=== PATIENT | male | born 1960 | race Caucasian/White ===

== ENCOUNTER 2024-10-12 19:46 | Observation (INO) | payer MEDICARE, SELFPAY ==
[2024-10-12] VITALS (8 sets, daily range): BP systolic 130–144; BP diastolic 74–89; PULSE 88–101; RESP 16–19; TEMP 36.4–36.7; O2SAT 99–100
--- NOTE | ~2024-10-12 | XR_ITS ---
XR chest 1V portable Ordering provider: Ulises Estrella MD History: 64 years Male with . SYNCOPAL EPISODE . Comparison: None. FINDINGS: MEDIASTINUM: The cardiac silhouette is not enlarged. LUNGS: No effusions or pneumothorax. Opacification in the left lung base suggestive of atelectasis ve rsus pneumonia. OTHER: No free air under the diaphragm. Degenerative changes of the spine. IMPRESSION: Left basilar atelectasis versus pneumonia. Reviewed, dictated and finalized at location A. S AND MARKETING ADMINISTRATOR
--- NOTE | ~2024-10-12 | MR_ITS ---
EXAMINATION: MR brain/brain stem wo/w con DATE: 10/13/2024 10:48 INDICATION: Syncope. TECHNIQUE: Magnetic resonance imaging (MRI) of the brain and brainstem was performed without and with 20 mL MultiHance intravenous contrast. COMPARISON: Head CT 10/12/2024 FINDINGS: There are scattered areas of nonspecific increased T2-weighted signal intensity in the cere bral white matter, which is within normal limits for the patient's age. There is no intracranial hemo rrhage, acute infarction, or abnormal intracranial mass lesion. The ventricles are normal in size. Th ere is mild mucosal thickening in the ethmoid sinuses. The orbits are normal. The mastoid air cells a re normal. IMPRESSION: 1. Normal aging brain. Reviewed, dictated and finalized at location A. SHING MANAGER IMPRESSION: 1. Normal aging brain.
--- NOTE | ~2024-10-12 | CT_ITS ---
EXAMINATION: CTA brain carotid DATE: 10/12/2024 21:35 INDICATION: Syncope. Facial weakness. TECHNIQUE: Computed tomographic angiography (CTA) of the head was performed without and with 100 mL O mnipaque-350 intravenous contrast. CTA of the neck was performed with intravenous contrast. Automated exposure control and iterative reconstruction technique were employed. The dose-length product was 2 080.32 mGy-cm. Maximum intensity projection and volume rendered 3D-reconstructions were created by guillermo simmons technologist on a separate workstation. COMPARISON: None. FINDINGS: HEAD CTA: There is no intracranial hemorrhage, acute infarction, or abnormal intracranial mass lesion . There are scattered areas of low attenuation in the cerebral white matter, which is within normal l imits for the patient's age. The ventricles are normal in size. There is mild mucosal thickening in t he paranasal sinuses. The orbits are normal. The mastoid air cells are normal. Left vertebral artery is dominant. There is no significant stenosis of basilar artery or the posterior cerebral arteries. T he posterior communicating arteries are normal. There is no significant stenosis of the intracranial internal carotid arteries or anterior or middle cerebral arteries. Anterior communicating artery is n ormal. There is no aneurysm. NECK CTA: There are no pathologically enlarged lymph nodes. A calcified left lung nodule and calcifie d left hilar lymph nodes are consistent with old granulomatous disease. There is no significant steno sis of the vertebral arteries. There is mild plaque in the proximal internal carotid arteries. There is 0% stenosis of the proximal right internal carotid artery relative to normal distal artery lumen d iameter (NASCET criteria). There is 0% stenosis of the proximal left internal carotid artery relative to normal distal artery lumen diameter. There is moderate cervical spondylosis. IMPRESSION: 1. Normal aging brain. No aneurysm or significant intracranial arterial stenosis. 2. 0% stenosis of the proximal internal carotid arteries relative to normal distal artery lumen diame ters (NASCET criteria). Reviewed, dictated and finalized at location A. ER TURNER IMPRESSION: 1. Normal aging brain. No aneurysm or significant intracranial arterial stenosi s. 2. 0% stenosis of the proximal internal carotid arteries relative to normal dis felipe artery lumen diameters (NASCET criteria).
--- NOTE | 2024-10-12 19:56 | ECG_ITS ---
Test Date: 2024-10-12 19:58:59 Measurements Intervals [place] Rate: 88 P: 50 NE: 181 QRS: -7 QRSD: 174 T: 0 QT: 395 QTc: 480 Interpretive Statements SINUS RHYTHM RIGHT BUNDLE BRANCH BLOCK [120+ ms QRS DURATION, UPRIGHT V1, 40+ ms S IN I/aVL/V4/V5/V6] No previous ECG available for comparison Electronically Signed On 10-13-2024 09:51:13 DISTILLATION OPERATOR HELPER by Yeison Thornton M.D.
[2024-10-12 20:25] LABS: Basophils Absolute Auto 0.1 K/mm3 (0.0-0.1); Basophils Percent Auto 0.9 % (0.2-1.2); Eosinophils Absolute Auto 0.1 K/mm3 (0-0.3); Eosinophils Percent Auto 1.8 % (0-4.4); Hematocrit 43.8 % (42.0-52.0); Hemoglobin 14.9 g/dL (14.0-18.0); Immature Granulocyte Absolute 0.01 K/mm3 (0.00-0.031); Immature Granulocyte Percent A 0.2 % (0-0.5); Lymphocytes Absolute Auto 2.32 K/mm3 (0.9-3.2); Lymphocytes Percent Auto 35.3 % (18.3-44.2); Mean Corpuscular Hemoglobin 29.7 pg (26-34); Mean Corpuscular Volume 87.3 fl (80-100); Mean Platelet Volume 9.7 fl (7.4-10.4); Monocytes Absolute Auto 0.5 K/mm3 (0.1-0.6); Monocytes Percent Auto 7.4 % (2.6-8.5); Neutrophils Absolute Auto 3.6 K/mm3 (1.3-6.7); Neutrophils Percent Auto 54.4 % (45.5-73.1); Platelet Count Result 250 k/mm3 (150-375); Red Blood Count 5.02 M/mm3 (4.6-6.20); Red Cell Distribution Width 13.2 % (11.5-14.5); White Blood Count 6.6 K/mm3 (4.5-10.0)
[2024-10-12 20:36] LABS: Alanine Aminotransferase 21 U/L (6-50); Albumin Level 4.7 g/dL (3.5-5.1); Alkaline Phosphatase 86 U/L (38-126); Anion Gap 8 mmol/L (4-12); Aspartate Amino Transferase 26 U/L (17-59); Bilirubin,Total 0.7 mg/dL (0.2-1.3); Blood Urea Nitrogen 13 mg/dL (9-20); Calcium 9.6 mg/dL (8.4-10.2); Carbon Dioxide 24 mmol/L (22-30); Chloride 102 mmol/L (98-107); Estimated CRCL calculation 75 ml/min; Estimated Glomerular Filt Rate > 60; Glucose 230 mg/dL (65-110); Sodium 134 mmol/L (137-145)
[2024-10-12 21:00] LABS: Magnesium 1.6 mg/dL (1.6-2.3)
[2024-10-12 21:03] LABS: Partial Thromboplastin Time 23.8 Seconds (22.3-36.8)
[2024-10-12 21:13] LABS: Troponin I < 0.012 ng/mL (0.000-0.034)
[2024-10-12 21:18] LABS: Lactic Acid Reflex 2.9 mmol/L (0.7-2.0)
[2024-10-12 22:14] LABS: Add Urine Microscopic? NO; Appearance Urine Clear (Clear); Bilirubin Urine Negative (Negative); Blood Urine Negative (Negative); Color Urine Yellow (Yellow); Glucose Urine UA 3+ mg/dL (Negative); Ketones Urine Negative (Negative); Leukocyte Esterase Ur Negative LEU/UL (Negative); Nitrate Urine Negative (Negative); Protein Urine Negative (Negative); Specific Grav Ur > 1.045 (1.001-1.035); Urobilinogen Urine 0.2 mg/dL (<2.0); pH Urine 5.5 (5.0-9.0)
--- NOTE | 2024-10-12 22:35 | ED_ITS ---
HPI - General Adult General Chief complaint: Syncope Stated complaint: SYNCOPAL EPISODE Time Seen by Provider: 10/12/24 20:03 History of Present Illness HPI narrative: Patient 64-year-old gentleman who presents emergency department with chief complaint of syncopal episode. Patient reports that he has had some episodes of syncope before in the past and had an evaluation reviews told that he may have had a small stroke patient states that he was at the middle school started to feel lightheaded felt as though his vision started closing in on him and then briefly passed out the family reported that whenever he would passed out he was very slow to talk afterwards and they noticed that he may have had a slight facial droop. The patient reports that he feels though he is back to normal now does feel as though he is somewhat tired. Related Data Allergies Allergy/AdvReac Type Severity Reaction Status Date / Time No Known Allergies Allergy Verified 10/12/24 19:58 Review of Systems Review of Systems: A 10 system review of systems was completed on the patient and is negative except for what is stated in the HPI. Nursing and ancillary documentation was reviewed. Exam Narrative: GENERAL: Well-appearing, well-nourished, and in no acute distress. HEAD: Normocephalic, atraumatic. EYES: PERRLA and EOMI. ENT: Nares clear, no rhinorrhea or epistaxis. Mucous membranes moist. NECK: Supple. CHEST: Clear to auscultation. No respiratory distress. HEART: Regular rate and rhythm. No murmur heard. Normal peripheral pulses. ABDOMEN: Soft, nontender, nondistended, normal active bowel sounds. EXTREMITIES: Normal range of motion. No edema. SKIN: Warm, dry, no rash. NEURO: No focal deficits. Alert and oriented x3. PSYCH: Normal mood and affect. Course Vital Signs Vital signs: Vital Signs Temperature 36.4 C 10/12/24 20:02 Pulse Rate 88 10/12/24 20:02 Respiratory Rate 17 10/12/24 20:02 Blood Pressure 131/81 10/12/24 20:02 Pulse Oximetry 100 10/12/24 20:02 Temperature 36.4 C 10/12/24 22:44 Pulse Rate 90 10/12/24 22:44 Respiratory Rate 19 10/12/24 22:44 Blood Pressure 144/80 H 10/12/24 22:44 Pulse Oximetry 99 10/12/24 22:44 Oxygen Delivery Room Air 10/12/24 20:05 Medical Decision Making MDM Narrative Medical decision making narrative: Differential diagnosis includes dysrhythmia, electrolyte abnormality, dehydr ation, vasovagal syncope, dysrhythmia, ACS, CVA CT angiography of head and neck showed no acute abnormality. Laboratory studies were essentially unremarkable EKG showed no acute ischemic changes or dysrhythmia The case was discussed with the hospitalist the patient will be observed overnight Vital Signs Vital Signs: Vital Signs Temperature 36.4 C 10/12/24 20:02 Pulse Rate 88 10/12/24 20:02 Respiratory Rate 17 10/12/24 20:02 Blood Pressure 131/81 10/12/24 20:02 Pulse Oximetry 100 10/12/24 20:02 Temperature 36.4 C 10/12/24 22:44 Pulse Rate 90 10/12/24 22:44 Respiratory Rate 19 10/12/24 22:44 Blood Pressure 144/80 H 10/12/24 22:44 Pulse Oximetry 99 10/12/24 22:44 Oxygen Delivery Room Air 10/12/24 20:05 Lab Data 10/12/24 20:19 10/12/24 20:19 Labs: Lab Results 10/12/24 10/12/24 10/12/24 Range/Units 20:19 20:54 22:00 WBC 6.6 (4.5-10.0) K/mm3 RBC 5.02 (4.6-6.20) M/mm3 Hgb 14.9 (14.0-18.0) g/dL Hct 43.8 (42.0-52.0) % MCV 87.3 (80-100) fl MCH 29.7 (26-34) pg MCHC 34.0 (32-36) g/dl RDW 13.2 (11.5-14.5) % Plt Count 250 (150-375) k/mm3 MPV 9.7 (7.4-10.4) fl Immature Gran % (Auto) 0.2 (0-0.5) % Neut % (Auto) 54.4 (45.5-73.1) % Lymph % (Auto) 35.3 (18.3-44.2) % [place] % (Auto) 7.4 (2.6-8.5) % Eos % (Auto) 1.8 (0-4.4) % Baso % (Auto) 0.9 (0.2-1.2) % Lymph # (Auto) 2.32 (0.9-3.2) K/mm3 [place] # (Auto) 0.5 (0.1-0.6) K/mm3 Eos # (Auto) 0.1 (0-0.3) K/mm3 Baso # (Auto) 0.1 (0.0-0.1) K/mm3 Abs Immat Gran (auto) 0.01 (0.00-0.031) K/mm3 Absolute Neuts (auto) 3.6 (1.3-6.7) K/mm3 Absolute Nucleated RBC 0.000 (0.0-0.012) K/mm3 Nucleated RBC % 0.0 (0.0-0.2) % PT 14.0 (11.1-14.7) Seconds INR 1.0 APTT 23.8 (22.3-36.8) Seconds Sodium 134 L (137-145) mmol/L Potassium 4.0 (3.4-5.0) mmol/L Chloride 102 (98-107) mmol/L Carbon Dioxide 24 (22-30) mmol/L Anion Gap 8 (4-12) mmol/L BUN 13 (9-20) mg/dL Creatinine 1.10 (0.7-1.3) mg/dL Estim Creat Clear Calc 75 ml/min Estimated GFR > 60 (59 - ) Glucose 230 H (65-110) mg/dL Lactic Acid 2.9 H (0.7-2.0) mmol/L Calcium 9.6 (8.4-10.2) mg/dL Magnesium 1.6 (1.6-2.3) mg/dL Total Bilirubin 0.7 (0.2-1.3) mg/dL AST 26 (17-59) U/L ALT 21 (6-50) U/L Alkaline Phosphatase 86 (38-126) U/L Troponin I < 0.012 (0.000-0.034) ng/mL Total Protein 8.0 (6.3-8.2) g/dL Albumin 4.7 (3.5-5.1) g/dL Urine Color Yellow (Yellow) Urine Appearance Clear (Clear) Urine pH 5.5 (5.0-9.0) Ur Specific [place] > 1.045 H (1.001-1.035) Urine Protein Negative (Negative) mg/dL Urine Glucose (UA) 3+ H (Negative) mg/dL Urine Ketones Negative (Negative) mg/dL Ur Blood (Man) Negative (Negative) Urine Nitrate Negative (Negative) Urine Bilirubin Negative (Negative) Urine Urobilinogen 0.2 (<2.0) mg/dL Leukocyte Esterase Rfl Negative (Negative) SHERIF/UL Discharge Plan Discharge Clinical Impression: Syncope Patient Disposition: Still a Patient Condition: Stable Follow-up/Referrals: UNKNOWN,DOCTOR [Primary Care Provider] - Time of Disposition: 22:57 Quality Stroke Scale Stroke Scale 1: Stroke scale date:: 10/12/24 Stroke scale time:: 20:19 1a Level of consciousness: alert-0 1b Level of consciousness questions: answers both correctly-0 1c Level of consciousness commands: obeys both correctly-0 2 Best gaze: normal-0 3 Visual: no visual loss-0 4 Facial palsy: normal-0 5a Motor: left arm: no drift-0 5b Motor: right arm: no drift-0 6a Motor: left leg: no drift-0 6b Motor: right leg: no drift-0 7 Limb ataxia: absent-0 8 Sensory: normal-0 9 Best language: no aphasia-0 10 Dysarthria: normal-0 11 Extinction and inattention: no abnormality-0 Level:: 0
[2024-10-12] MEDS: SODIUM CHLORIDE 0.9% IV 1,000 ML 999 ML IV CONT (23:01)
[2024-10-13] VITALS (8 sets, daily range): BP systolic 113–154; BP diastolic 71–73; PULSE 76–84; RESP 16–20; TEMP 36.6–36.9; O2SAT 97–99; BMI 33.2; BMI 33.5
--- NOTE | 2024-10-13 | ECHO_ITS ---
Patient Info Name: Jefry Ornelas Age: 64 years : 1960 Gender: Male Ht: 72 in Wt: 239 lbs BSA: 2.38 m2 HR: 80 bpm BP: 154 / 41 mmHg Technical Quality: Good Exam Date: 10/13/2024 9:27 AM Exam Location: Echo Lab Patient Status: Inpatient Admit Date: 10/12/2024 Staff Ordering Physician: Bar Leo APRN Cut Off Saw Operator Pipe Blanks: Salma Masterson RDCS Attending Provider: Ulises Rankin MD Referring Physician: Ahmet AUGUSTINE; Exam Type: CA echo doppler w bubble study Study Info Indications - stroke like symptoms Complete two-dimensional, color flow and Doppler transthoracic echocardiogram is performed with agitated saline. Summary 1. The atrial septum is not well visualized. There were limited views of agitated saline study in short loops however in does limited views and short loops there did not appear to be any right to left shunts. 2. The left ventricle is normal in size and systolic function. The left ventricular ejection fraction is visually estimated to be 60-65%. 3. The right ventricle is mildly dilated with preserved systolic function. Left Ventricle The left ventricle is normal in size and systolic function. The left ventricular ejection fraction is visually estimated to be 60-65%. Right Ventricle The right ventricle is mildly dilated with preserved systolic function. Left Atria The left atrium is normal in size. Right Atria The right atrium is mildly dilated. Atrial Septum The atrial septum is not well visualized. There were limited views of agitated saline study in short loops however in does limited views and short loops there did not appear to be any right to left shunts. Aortic Valve The aortic valve is trileaflet and opens well. There is no aortic regurgitation. Pulmonic Valve The pulmonic valve is not well visualized. There is trace pulmonic valve regurgitation. Mitral Valve The mitral valve is normal. There is no mitral regurgitation. Tricuspid Valve The tricuspid valve is grossly normal. There is trace tricuspid valve regurgitation. Pericardium/Pleural There was no pericardial effusion seen in available views. Inferior Vena Cava Inferior vena cava is not well visualized. Aorta The aortic root at the level of the sinus of Valsalva when indexed to BSA is normal in diameter measuring 1.5cm/m2. Left Ventricular Outflow Tract Name Value Normal LVOT 2D LVOT Diameter 2.4 cm LVOT Doppler LVOT Peak Gradient 5 mmHg LVOT Mean Gradient 2 mmHg LVOT VTI 22 cm LVOT VTI/AV VTI Ratio 1.0 LVOT Stroke Volume 101 ml LVOT CO 19.8 l/min LVOT CI 8.3 l/min/m2 Pulmonic Valve Name Value Normal PV Doppler PV Peak Gradient 8 mmHg Mitral Valve Name Value Normal MV Doppler MV Decel [place] 243 cm/s2 MV PHT 78 ms MV Area (PHT) 2.8 cm2 4.0-5.0 MV Diastolic Function MV E Peak Velocity 65 cm/s MV A Peak Velocity 100 cm/s MV E/A 0.7 MV Decel Time 268 ms MV Annular TDI MV E/e' (Septal) 12.2 <=8.0 MV E/e' (Lateral) 9.1 <=8.0 MV E/e' (Average) 10.7 Tricuspid Valve Name Value Normal TV Regurgitation Doppler TR Peak Velocity 234 cm/s TR Peak Gradient 22 mmHg Aorta Name Value Normal Ascending Aorta Ao Root Diameter (2D) 3.5 cm Ao Root Diam Index (2D) 1.5 cm/m2 Aortic Valve Name Value Normal AV Doppler AV Peak Velocity 120 cm/s AV Peak Gradient 6 mmHg AV Mean Gradient 3 mmHg AV VTI 22 cm AV Area (Cont Eq VTI) 4.6 cm2 >=3.0 AV Area (Cont Eq Rajendra) 4.1 cm2 AV Regurgitation 2D LVOT Area 4.7 cm2 Ventricles Name Value Normal LV Dimensions 2D/MM IVS Diastolic Thickness (2D) 0.8 cm 0.6-1.0 LVID Diastole (2D) 4.7 cm 4.2-5.8 LVIW Diastolic Thickness (2D) 0.9 cm 0.6-1.0 LVID Systole (2D) 3.1 cm 2.5-4.0 LVOT Diameter 2.4 cm LV Mass (2D Cubed) 131.23 g 88.00-224.00 LV Mass Index (2D Cubed) 55 g/m2 49-115 Relative Wall Thickness (2D) 0.37 LV Fractional Shortening/Ejection Fraction 2D/MM LV Fractional Shortening (2D) 34 % 25-43 LV EF (2D Teicholz) 63 % 52-72 LV Diastolic Volume (4C MOD) 126 ml LV EF (4C MOD) 50 % LV Diastolic Volume (2C MOD) 101 ml LV EF (2C MOD) 59 % LV Diastolic Volume (BP MOD) 123 ml 62-150 LV Diastolic Volume Index (BP MOD) 52 ml/m2 34-74 LV Systolic Volume (BP MOD) 53 ml 21-61 LV Systolic Volume Index (BP MOD) 22 ml/m2 11-31 LV EF (BP MOD) 57 % 52-72 LV Diastolic Length (4C) 8.6 cm LV Systolic Length (4C) 7.2 cm LV Stroke Volume (4C MOD) 63 ml Atria Name Value Normal LA Dimensions LA Dimension (2D) 4.1 cm 3.0-4.1 LA Dimen Index (2D) 1.7 cm/m2 LA Volume (4C A-L) 72 ml RA Dimensions RA Area (4C) 19.7 cm2 <=18.0 Report Signatures
[2024-10-13 00:01] LABS: Reflex Lactic Acid Yes or No Add Lactic
--- NOTE | 2024-10-13 00:47 | ADMGEN ---
This patient, Jefry Ornelas, was admitted to Medical Room 349-01. Patient/family oriented to hospital policies and general routines including ID bracelet, bed and alarms, visiting hours, pain management, procedures, bathroom and other care routines, personal items, smoking policy, room service/diet, and visiting hours. Information on how to activate the Rapid Response Team has been discussed. Patient/Family are encouraged to report perceived risks to care and to ask questions if they do not understand what they are told or what they should do.
[2024-10-13 01:26] LABS: Lactic Acid 1.9 mmol/L (0.7-2.0)
[2024-10-13 01:36] LABS: Hemoglobin A1C 7.5 % (<5.7)
--- NOTE | 2024-10-13 03:16 | P.HP_ITS ---
H&P: HPI History of Present Illness Date/Time: 10/13/24 03:16 Chief Complaint: Syncope Narrative: This is a 64-year-old male patient with a past medical history diabetes hypertension hypothyroidism coronary artery disease and recurrent syncope presented to the emergency department today after a syncopal episode. After awakening from his syncopal episode there was concern for brief time speaking slowly and a possible facial droop. Patient is being admitted for MRI echocardiogram for stroke versus TIA workup. Patient already takes clopidogrel daily. Workup in the emergency department with normal labs except for hyperglycemia and resultant lower sodium level. Hemoglobin A1c is 7.5. Lactic acid elevated at 2.9 patient is on metformin. He did receive IV fluids and repeat lactic acid was 1.9. Chest x-ray showed left basilar atelectasis versus pneumonia. Normal white blood cell count and patient is afebrile. Head CT with CTA is unremarkable and shows 0% stenosis of the proximal internal carotid arteries bilateral. Patient was previously informed that he had narrowing of carotid artery but that is not apparent at this time. Review of Systems Review of Systems: All systems reviewed & are unremarkable except as noted in HPI and below PMFSH Past Medical History Medical History CAD (coronary artery disease) HTN (hypertension) Hypothyroidism Type 2 diabetes mellitus with hyperglycemia Social History Social History Smoking status: Never smoker Second hand tobacco smoke exposure: No Alcohol intake: never Substance use: never Do You Feel Safe in your Home?: Yes Lack of Transportation: No Lack of Food: Never True Current Housing: I Have Housing Concerned About Future Housing: No Difficulty Paying Gas/Electric Bills: No Difficulty Paying for Meds: No Currently Unemployed: No Education: Associate Degree Difficulty w/ Childcare or Family Care: No Spiritual care concerns: No Meds Home Medications and Allergies Home Medications Medication Instructions Recorded Confirmed Type atorvastatin 10 mg tablet 10 mg PO HS 10/13/24 10/13/24 History clobetasol 0.05 % topical ointment 0.05 applic topical BID 10/13/24 10/13/24 History clopidogrel 75 mg tablet 75 mg PO DAILY 10/13/24 10/13/24 History levothyroxine 75 mcg tablet 75 mcg PO DAILY 10/13/24 10/13/24 History losartan 100 mg tablet 100 mg PO DAILY 10/13/24 10/13/24 History magnesium oxide 400 mg PO DAILY 10/13/24 10/13/24 History metformin 750 mg tablet,extended 750 mg PO BID 10/13/24 10/13/24 History release 24 hr metoprolol succinate 50 mg 50 mg PO DAILY 10/13/24 10/13/24 History tablet,extended release 24 hr omeprazole 40 mg capsule,delayed 40 mg PO DAILY 10/13/24 10/13/24 History release pioglitazone 30 mg tablet 30 mg PO DAILY 10/13/24 10/13/24 History semaglutide 1 mg/dose (4 mg/3 mL) 1 mg subcut WEEKLY 10/13/24 10/13/24 History subcutaneous pen injector (Ozempic) semaglutide 1 mg/dose (4 mg/3 mL) mg subcut 10/13/24 History subcutaneous pen injector (Ozempic) Allergies Allergy/AdvReac Type Severity Reaction Status Date / Time No Known Allergies Allergy Verified 10/12/24 19:58 Vital Signs Vital Signs - 24 hr 10/12/24 20:02 10/12/24 20:03 10/12/24 20:05 Temperature 36.4 C Pulse Rate 88 90 Respiratory Rate 17 Blood Pressure 131/81 Pulse Oximetry 100 100 Oxygen Delivery Room Air 10/12/24 20:54 10/12/24 22:02 10/12/24 22:03 Temperature 36.7 C Pulse Rate 92 92 96 Respiratory Rate 16 Blood Pressure 130/84 136/74 131/89 Pulse Oximetry 100 Oxygen Delivery 10/12/24 22:04 10/12/24 22:44 10/13/24 00:25 Temperature 36.4 C 36.9 C Pulse Rate 101 H 90 80 Respiratory Rate 19 18 Blood Pressure 133/82 144/80 H 154/71 H Pulse Oximetry 99 97 Oxygen Delivery 10/13/24 00:50 10/13/24 00:40 Temperature 36.9 C Pulse Rate 80 Respiratory Rate 18 Blood Pressure 154/71 H Pulse Oximetry 97 Oxygen Delivery Room Air Exam Narrative: GENERAL: Well-appearing, well-nourished, and in no acute distress. HEAD: Normocephalic, atraumatic. EYES: PERRLA and EOMI. ENT: Nares clear, no rhinorrhea or epistaxis. Mucous membranes moist. NECK: Supple. CHEST: Clear to auscultation. No respiratory distress. HEART: Regular rate and rhythm. No murmur heard. Normal peripheral pulses. ABDOMEN: Soft, nontender, nondistended, normal active bowel sounds. EXTREMITIES: Normal range of motion. No edema. SKIN: Warm, dry, no rash. NEURO: No focal deficits. Alert and oriented x3. PSYCH: Normal mood and affect. H&P: Results Labs Labs: Short CBC 10/12/24 Range/Units 20:19 WBC 6.6 (4.5-10.0) K/mm3 Hgb 14.9 (14.0-18.0) g/dL Hct 43.8 (42.0-52.0) % Plt Count 250 (150-375) k/mm3 BMP 10/12/24 20:19 Sodium 134 L Potassium 4.0 Chloride 102 Carbon Dioxide 24 BUN 13 Creatinine 1.10 Glucose 230 H Calcium 9.6 Cardiac Enzymes 10/12/24 Range/Units 20:19 Troponin I < 0.012 (0.000-0.034) ng/mL Liver Function 10/12/24 Range/Units 20:19 Total Bilirubin 0.7 (0.2-1.3) mg/dL AST 26 (17-59) U/L ALT 21 (6-50) U/L Alkaline Phosphatase 86 (38-126) U/L Albumin 4.7 (3.5-5.1) g/dL Urine 10/12/24 Range/Units 22:00 Urine Color Yellow (Yellow) Urine Appearance Clear (Clear) Urine pH 5.5 (5.0-9.0) Ur Specific [place] > 1.045 H (1.001-1.035) Urine Protein Negative (Negative) mg/dL Urine Glucose (UA) 3+ H (Negative) mg/dL Pulse Oximetry SpO2 results: 97-99% on room air Attestation: I personally reviewed and interpreted this pulse oximetry as follows: Interpretation: No need for supplemental oxygenation at this time ECG Attestation: I personally reviewed and interpreted this ECG as follows: ECG completion date: 10/12/24 ECG completion time: 19:58 Prior ECG tracings: not available for review Interpretation: Sinus rhythm rate of 88 CT interval 181 QRS duration 174 QTC 480 QRS axis -7? right bundle-branch block no STEMI with somewhat prolonged QTC Imaging Chest x-ray: Radiologist's impression: XR chest 1V portable Ordering provider: Ulises Estrella MD History: 64 years Male with . SYNCOPAL EPISODE . Comparison: None. FINDINGS: MEDIASTINUM: The cardiac silhouette is not enlarged. LUNGS: No effusions or pneumothorax. Opacification in the left lung base suggestive of atelectasis versus pneumonia. OTHER: No free air under the diaphragm. Degenerative changes of the spine. IMPRESSION: Left basilar atelectasis versus pneumonia. Reviewed, dictated and finalized at location A. [employer] CT scan - head: Radiologist's impression: EXAMINATION: CTA brain carotid DATE: 10/12/2024 21:35 INDICATION: Syncope. Facial weakness. TECHNIQUE: Computed tomographic angiography (CTA) of the head was performed without and with 100 mL Omnipaque-350 intravenous contrast. CTA of the neck was performed with intravenous contrast. Automated exposure control and iterative reconstruction technique were employed. The dose-length product was 2080.32 mGy- cm. Maximum intensity projection and volume rendered 3D-reconstructions were created by the technologist on a separate workstation. COMPARISON: None. FINDINGS: HEAD CTA: There is no intracranial hemorrhage, acute infarction, or abnormal intracranial mass lesion. There are scattered areas of low attenuation in the cerebral white matter, which is within normal limits for the patient's age. The ventricles are normal in size. There is mild mucosal thickening in the paranasal sinuses. The orbits are normal. The mastoid air cells are normal. Left vertebral artery is dominant. There is no significant stenosis of basilar artery or the posterior cerebral arteries. The posterior communicating arteries are normal. There is no significant stenosis of the intracranial internal carotid arteries or anterior or middle cerebral arteries. Anterior communicating artery is normal. There is no aneurysm. NECK CTA: There are no pathologically enlarged lymph nodes. A calcified left lung nodule and calcified left hilar lymph nodes are consistent with old granulomatous disease. There is no significant stenosis of the vertebral arteries. There is mild plaque in the proximal internal carotid arteries. There is 0% stenosis of the proximal right internal carotid artery relative to normal distal artery lumen diameter (NASCET criteria). There is 0% stenosis of the proximal left internal carotid artery relative to normal distal artery lumen diameter. There is moderate cervical spondylosis. IMPRESSION: 1. Normal aging brain. No aneurysm or significant intracranial arterial stenosis. 2. 0% stenosis of the proximal internal carotid arteries relative to normal distal artery lumen diameters (NASCET criteria). Reviewed, dictated and finalized at location A. [employer] Assessment and Plan Assessment and plan (1) Syncope: Code(s): R55 - Syncope and collapse Status: Acute Assessment and Plan: -Recurrent syncopal episodes, this time with some delayed speech and possible facial droop that resolved spontaneously -Observation for MRI and Echo with bubble study -Lipid panel ordered -Patient on clopidogrel already, will add aspirin for now (2) Type 2 diabetes mellitus with hyperglycemia: Code(s): E11.65 - Type 2 diabetes mellitus with hyperglycemia Status: Acute Assessment and Plan: -Home medications include metformin ER and Actos -Patient reports he will be restarting Ozempic as well -ACHS fingestick glucose with SSI -Heart healthy and diabetic diet (3) HTN (hypertension): Code(s): I10 - Essential (primary) hypertension Status: Acute Assessment and Plan: -Blood pressure reviewed and stable -Continue home medications Quality VTE Prophylaxis VTE prophylaxis: pharmacologic ordered Hospitalist MIPS Advance Care Plan I have confirmed that the patient's Advanced Care Plan is present, code status is documented, or surrogate decision maker is listed in patient medical record.: Yes Medication Reconciliation I have utilized all available resources to obtain, update and review the patients current medications (includes all prescriptions, OTC, herbals, cannabis, and nutritional supplements).: Yes
[2024-10-13] MEDS: LEVOTHYROXINE SODIUM 75 MCG TABLET PO (04:55)
[2024-10-13 07:02] LABS: Basophils Percent Auto 0.5 % (0.2-1.2); Eosinophils Absolute Auto 0.1 K/mm3 (0-0.3); Eosinophils Percent Auto 1.8 % (0-4.4); Hematocrit 38.8 % (42.0-52.0); Hemoglobin 13.5 g/dL (14.0-18.0); Immature Granulocyte Absolute 0.01 K/mm3 (0.00-0.031); Immature Granulocyte Percent A 0.2 % (0-0.5); Lymphocytes Absolute Auto 2.31 K/mm3 (0.9-3.2); Lymphocytes Percent Auto 38.2 % (18.3-44.2); Mean Corpuscular HGB Conc 34.8 g/dl (32-36); Mean Corpuscular Hemoglobin 30.5 pg (26-34); Mean Corpuscular Volume 87.6 fl (80-100); Mean Platelet Volume 9.8 fl (7.4-10.4); Monocytes Absolute Auto 0.5 K/mm3 (0.1-0.6); Monocytes Percent Auto 8.6 % (2.6-8.5); Neutrophils Absolute Auto 3.1 K/mm3 (1.3-6.7); Neutrophils Percent Auto 50.7 % (45.5-73.1); Platelet Count Result 211 k/mm3 (150-375); Red Blood Count 4.43 M/mm3 (4.6-6.20); Red Cell Distribution Width 13.2 % (11.5-14.5)
[2024-10-13 07:12] LABS: Alanine Aminotransferase 19 U/L (6-50); Albumin Level 4.1 g/dL (3.5-5.1); Alkaline Phosphatase 83 U/L (38-126); Anion Gap 6 mmol/L (4-12); Aspartate Amino Transferase 21 U/L (17-59); Bilirubin,Total 0.8 mg/dL (0.2-1.3); Blood Urea Nitrogen 11 mg/dL (9-20); Carbon Dioxide 25 mmol/L (22-30); Chloride 103 mmol/L (98-107); Cholesterol 127 mg/dL (0-200); Estimated CRCL calculation 92 ml/min; Estimated Glomerular Filt Rate > 60; Glucose 180 mg/dL (65-110); HDL Direct 33 mg/dL; Magnesium 1.6 mg/dL (1.6-2.3); Potassium 3.9 mmol/L (3.4-5.0); Sodium 134 mmol/L (137-145); Triglycerides 216 mg/dL (<150)
[2024-10-13 07:22] LABS: LDL Cholesterol Direct 56 mg/dL
[2024-10-13 08:06] LABS: Glucose Point of Care 174 mg/dl (65-105)
[2024-10-13 11:43] LABS: Glucose Point of Care 166 mg/dl (65-105)
[2024-10-13] MEDS: ENOXAPARIN 40 MG/0.4 ML SYRINGE SUB-Q (11:58)
[2024-10-13] MEDS: PIOGLITAZONE HCL 30 MG TABLET PO (11:58)
[2024-10-13] MEDS: METOPROLOL SUCCINATE EXT REL 50 MG TABCR PO (11:59)
[2024-10-13] MEDS: PANTOPRAZOLE 40 MG TABLET PO (11:59)
[2024-10-13] MEDS: LOSARTAN POTASSIUM 100 MG TABLET PO (11:59)
[2024-10-13] MEDS: MAGNESIUM OXIDE 400 MG TABLET PO (11:59)
[2024-10-13] MEDS: CLOPIDOGREL BISULFATE 75 MG TABLET PO (11:59)
[2024-10-13] MEDS: ASPIRIN 81 MG ENTERIC TABLET PO (11:59)
[2024-10-13] MEDS: CLOBETASOL PROPIONATE 0.05% OINT 30 GM 0.05 APPLIC TOPICAL (12:00)
--- NOTE | 2024-10-13 12:16 | P.PNIM_ITS ---
Subjective Date/time seen: 10/13/24 12:16 Review of Systems Review of Systems: All systems reviewed & are unremarkable except as noted in HPI and below Objective Data Vital Signs Vital Signs: Vital Signs - 24 hr 10/12/24 20:02 10/12/24 20:03 10/12/24 20:05 Temperature 97.6 F Pulse Rate 88 90 Respiratory Rate 17 Blood Pressure 131/81 Pulse Oximetry 100 100 Oxygen Delivery Room Air 10/12/24 20:54 10/12/24 22:02 10/12/24 22:03 Temperature 98.1 F Pulse Rate 92 92 96 Respiratory Rate 16 Blood Pressure 130/84 136/74 131/89 Pulse Oximetry 100 Oxygen Delivery 10/12/24 22:04 10/12/24 22:44 10/13/24 00:25 Temperature 97.6 F 98.4 F Pulse Rate 101 H 90 80 Respiratory Rate 19 18 Blood Pressure 133/82 144/80 H 154/71 H Pulse Oximetry 99 97 Oxygen Delivery 10/13/24 00:50 10/13/24 06:00 10/13/24 11:59 Temperature 97.9 F Pulse Rate 76 77 Respiratory Rate 20 Blood Pressure 118/73 Pulse Oximetry 98 Oxygen Delivery Room Air 10/13/24 00:40 Temperature 98.4 F Pulse Rate 80 Respiratory Rate 18 Blood Pressure 154/71 H Pulse Oximetry 97 Oxygen Delivery Intake/Output Intake/Output: Intake & Output 10/10/24 10/11/24 10/12/24 10/13/24 23:59 23:59 23:59 23:59 Intake Total 120 Balance 120 Meds/Results Medications: Active Medications Generic Name Dose Route Start Last Admin Trade Name Freq PRN Reason Stop Dose Admin Acetaminophen 650 mg 10/12/24 22:54 Acetaminophen 325 Mg Tablet PO Q4H PRN Mild Pain (1-3) or Fever Aspirin 81 mg 10/13/24 09:00 10/13/24 11:59 Aspirin 81 Mg Enteric Tablet PO 81 mg QAM [facility] Administration Atorvastatin Calcium 10 mg 10/13/24 21:00 Atorvastatin 10 Mg Tablet PO HS [facility] Clobetasol Propionate 0.05 applic 10/13/24 09:00 10/13/24 12:00 Clobetasol Propionate 0.05% Oint 30 Gm TOPICAL 0.05 applic BID [facility] Administration Clopidogrel Bisulfate 75 mg 10/13/24 09:00 10/13/24 11:59 Clopidogrel Bisulfate 75 Mg Tablet PO 75 mg DAILY [facility] Administration Dextrose 12.5 gm 10/13/24 01:27 Dextrose 50% 25 Gm/50 Ml Syringe IV PUSH PRN PRN Hypoglycemia Protocol Enoxaparin Sodium 40 mg 10/13/24 09:00 10/13/24 11:58 Enoxaparin 40 Mg/0.4 Ml Syringe SUB-Q 40 mg DAILY [facility] Administration Glucagon 1 mg 10/13/24 01:27 Glucagon For Inj 1 Mg Vial IM PRN PRN Hypoglycemia Protocol Glucose 15 gm 10/13/24 01:27 Glucose Oral Gel 15 Gm Of Glucse In 37.5 Gm Tube PO PRN PRN Hypoglycemia Protocol Dextrose 1,000 mls @ 100 mls/hr 10/13/24 01:27 Dextrose 5% 1,000 Ml IVPB PRN PRN Hypoglycemia Protocol Insulin Aspart 4 - 8 units 10/13/24 08:00 10/13/24 12:01 Insulin Aspart (*Bkc) 100 Units/Ml SUB-Q Not Given TIDWM [facility] Protocol Levothyroxine Sodium 75 mcg 10/13/24 06:30 10/13/24 04:55 Levothyroxine Sodium 75 Mcg Tablet PO 75 mcg DAILY@0630 [facility] Administration Losartan Potassium 100 mg 10/13/24 09:00 10/13/24 11:59 Losartan Potassium 100 Mg Tablet PO 100 mg DAILY [facility] Administration Magnesium Oxide 400 mg 10/13/24 09:00 10/13/24 11:59 Magnesium Oxide 400 Mg Tablet PO 400 mg DAILY [facility] Administration Metoprolol Succinate 50 mg 10/13/24 09:00 10/13/24 11:59 Metoprolol Succinate Ext Rel 50 Mg Tabcr PO 50 mg DAILY [facility] Administration Pantoprazole Sodium 40 mg 10/13/24 09:00 10/13/24 11:59 Pantoprazole 40 Mg Tablet PO 40 mg QAM [facility] Administration Perflutren Lipid Microsphere 0 ml 10/12/24 23:48 Perflutren Lipid Microspheres 1.5 Ml Vial Diluted To 10 Ml Total Volume IV PUSH 10/15/24 23:49 ONCE PRN adequate visualization Protocol Pioglitazone HCl 30 mg 10/13/24 09:00 10/13/24 11:58 Pioglitazone Hcl 30 Mg Tablet PO 30 mg DAILY [facility] Administration Radiology Results: ITS Impressions Chest X-Ray 12/04/24 20:48 IMPRESSION: Left basilar atelectasis versus pneumonia. Head/Neck CTA 10/12/24 21:36 IMPRESSION: 1. Normal aging brain. No aneurysm or significant intracranial arterial stenosis. 2. 0% stenosis of the proximal internal carotid arteries relative to normal distal artery lumen diameters (NASCET criteria). Brain MRI 10/13/24 10:55 IMPRESSION: 1. Normal aging brain. Labs Labs: Laboratory Results - last 24 hr 10/12/24 10/12/24 10/12/24 20:19 20:54 22:00 WBC 6.6 RBC 5.02 Hgb 14.9 Hct 43.8 MCV 87.3 MCH 29.7 MCHC 34.0 RDW 13.2 Plt Count 250 MPV 9.7 Immature Gran % (Auto) 0.2 Neut % (Auto) 54.4 Lymph % (Auto) 35.3 [place] % (Auto) 7.4 Eos % (Auto) 1.8 Baso % (Auto) 0.9 Lymph # (Auto) 2.32 [place] # (Auto) 0.5 Eos # (Auto) 0.1 Baso # (Auto) 0.1 Abs Immat Gran (auto) 0.01 Absolute Neuts (auto) 3.6 Absolute Nucleated RBC 0.000 Nucleated RBC % 0.0 PT 14.0 INR 1.0 APTT 23.8 Sodium 134 L Potassium 4.0 Chloride 102 Carbon Dioxide 24 Anion Gap 8 BUN 13 Creatinine 1.10 Estim Creat Clear Calc 75 Estimated GFR > 60 Glucose 230 H POC Capillary Glucose Hemoglobin A1c Lactic Acid 2.9 H Calcium 9.6 Magnesium 1.6 Total Bilirubin 0.7 AST 26 ALT 21 Alkaline Phosphatase 86 Troponin I < 0.012 Total Protein 8.0 Albumin 4.7 Triglycerides Cholesterol LDL Cholesterol Direct HDL Direct Urine Color Yellow Urine Appearance Clear Urine pH 5.5 Ur Specific [place] > 1.045 H Urine Protein Negative Urine Glucose (UA) 3+ H Urine Ketones Negative Ur Blood (Man) Negative Urine Nitrate Negative Urine Bilirubin Negative Urine Urobilinogen 0.2 Leukocyte Esterase Rfl Negative 10/13/24 10/13/24 10/13/24 01:08 06:39 08:01 WBC 6.0 RBC 4.43 L Hgb 13.5 L Hct 38.8 L MCV 87.6 MCH 30.5 MCHC 34.8 RDW 13.2 Plt Count 211 MPV 9.8 Immature Gran % (Auto) 0.2 Neut % (Auto) 50.7 Lymph % (Auto) 38.2 [place] % (Auto) 8.6 H Eos % (Auto) 1.8 Baso % (Auto) 0.5 Lymph # (Auto) 2.31 [place] # (Auto) 0.5 Eos # (Auto) 0.1 Baso # (Auto) 0.0 Abs Immat Gran (auto) 0.01 Absolute Neuts (auto) 3.1 Absolute Nucleated RBC 0.000 Nucleated RBC % 0.0 PT INR APTT Sodium 134 L Potassium 3.9 Chloride 103 Carbon Dioxide 25 Anion Gap 6 BUN 11 Creatinine 0.90 Estim Creat Clear Calc 92 Estimated GFR > 60 Glucose 180 H POC Capillary Glucose 174 H Hemoglobin A1c 7.5 H Lactic Acid 1.9 Calcium 9.0 Magnesium 1.6 Total Bilirubin 0.8 AST 21 ALT 19 Alkaline Phosphatase 83 Troponin I Total Protein 7.0 Albumin 4.1 Triglycerides 216 H Cholesterol 127 LDL Cholesterol Direct 56 HDL Direct 33 Urine Color Urine Appearance Urine pH Ur Specific [place] Urine Protein Urine Glucose (UA) Urine Ketones Ur Blood (Man) Urine Nitrate Urine Bilirubin Urine Urobilinogen Leukocyte Esterase [facility] 10/13/24 11:41 WBC RBC Hgb Hct MCV MCH MCHC RDW Plt Count MPV Immature Gran % (Auto) Neut % (Auto) Lymph % (Auto) [place] % (Auto) Eos % (Auto) Baso % (Auto) Lymph # (Auto) [place] # (Auto) Eos # (Auto) Baso # (Auto) Abs Immat Gran (auto) Absolute Neuts (auto) Absolute Nucleated RBC Nucleated RBC % PT INR APTT Sodium Potassium Chloride Carbon Dioxide Anion Gap BUN Creatinine Estim Creat Clear Calc Estimated GFR Glucose POC Capillary Glucose 166 H Hemoglobin A1c Lactic Acid Calcium Magnesium Total Bilirubin AST ALT Alkaline Phosphatase Troponin I Total Protein Albumin Triglycerides Cholesterol LDL Cholesterol Direct HDL Direct Urine Color Urine Appearance Urine pH Ur Specific [place] Urine Protein Urine Glucose (UA) Urine Ketones Ur Blood (Man) Urine Nitrate Urine Bilirubin Urine Urobilinogen Leukocyte Esterase Rfl
--- NOTE | 2024-10-13 14:24 | P.CONCA_ITS ---
Assessment and Plan Assessment and plan (1) HTN (hypertension): Code(s): I10 - Essential (primary) hypertension Status: Acute (2) Type 2 diabetes mellitus with hyperglycemia: Code(s): E11.65 - Type 2 diabetes mellitus with hyperglycemia Status: Acute (3) Syncope: Code(s): R55 - Syncope and collapse Status: Acute Plan 64-year-old man with CAD, diabetes mellitus type 2, hypothyroidism, hypertension presents with episode of syncope Syncope -obtain transthoracic echocardiogram -if TTE relatively normal, would have patient follow up outpatient for conside ration of long-term loop monitor Hypertension -losartan 100 mg p.o. daily Hyperlipidemia -atorvastatin 10 mg every evening History of Present Illness History of Present Illness Consult date/time: 10/13/24 14:24 Requesting physician: Sultana Crowe APRN Reason For Visit: Syncope Narrative: 64-year-old man with CAD, diabetes mellitus type 2, hypothyroidism, hypertension presents with episode of syncope. He was at his family [employer] when he sat down and suddenly felt very lightheaded and his whole body felt very weak. He could not remember what happened neck is however he did wake up on the floor. These episodes have occurred 6 times over the past 2 years and each time he denied experience any chest pain or shortness of breath nor was he exerted himself. Typically is able to mow the lawn and carry out all his activities of daily living without any significant cardiopulmonary limitations. Review of Systems Cardiovascular: Cardiovascular: Reports as per HPI Respiratory: Respiratory: Reports as per HPI [facility] Past Medical History Medical History CAD (coronary artery disease) HTN (hypertension) Hypothyroidism Type 2 diabetes mellitus with hyperglycemia Social History Social History Smoking status: Never smoker Second hand tobacco smoke exposure: No Alcohol intake: never Substance use: never Do You Feel Safe in your Home?: Yes Lack of Transportation: No Lack of Food: Never True Current Housing: I Have Housing Concerned About Future Housing: No Difficulty Paying Gas/Electric Bills: No Difficulty Paying for Meds: No Currently Unemployed: No Education: Associate Degree Difficulty w/ Childcare or Family Care: No Spiritual care concerns: No Meds Home Medications and Allergies Home Medications Medication Instructions Recorded Confirmed Type atorvastatin 10 mg tablet 10 mg PO HS 10/13/24 10/13/24 History clobetasol 0.05 % topical ointment 0.05 applic topical BID 10/13/24 10/13/24 History clopidogrel 75 mg tablet 75 mg PO DAILY 10/13/24 10/13/24 History levothyroxine 75 mcg tablet 75 mcg PO DAILY 10/13/24 10/13/24 History losartan 100 mg tablet 100 mg PO DAILY 10/13/24 10/13/24 History magnesium oxide 400 mg PO DAILY 10/13/24 10/13/24 History metformin 750 mg tablet,extended 750 mg PO BID 10/13/24 10/13/24 History release 24 hr metoprolol succinate 50 mg 50 mg PO DAILY 10/13/24 10/13/24 History tablet,extended release 24 hr omeprazole 40 mg capsule,delayed 40 mg PO DAILY 10/13/24 10/13/24 History release pioglitazone 30 mg tablet 30 mg PO DAILY 10/13/24 10/13/24 History semaglutide 1 mg/dose (4 mg/3 mL) 1 mg subcut WEEKLY 10/13/24 10/13/24 History subcutaneous pen injector (Ozempic) Allergies Allergy/AdvReac Type Severity Reaction Status Date / Time No Known Allergies Allergy Verified 10/12/24 19:58 Vital Signs Vital Signs - 24 hr 10/12/24 20:02 10/12/24 20:03 10/12/24 20:05 Temperature 36.4 C Pulse Rate 88 90 Respiratory Rate 17 Blood Pressure 131/81 Pulse Oximetry 100 100 Oxygen Delivery Room Air 10/12/24 20:54 10/12/24 22:02 10/12/24 22:03 Temperature 36.7 C Pulse Rate 92 92 96 Respiratory Rate 16 Blood Pressure 130/84 136/74 131/89 Pulse Oximetry 100 Oxygen Delivery 10/12/24 22:04 10/12/24 22:44 10/13/24 00:25 Temperature 36.4 C 36.9 C Pulse Rate 101 H 90 80 Respiratory Rate 19 18 Blood Pressure 133/82 144/80 H 154/71 H Pulse Oximetry 99 97 Oxygen Delivery 10/13/24 00:50 10/13/24 06:00 10/13/24 11:53 Temperature 36.6 C Pulse Rate 76 Respiratory Rate 20 Blood Pressure 118/73 Pulse Oximetry 98 Oxygen Delivery Room Air Room Air 10/13/24 11:59 10/13/24 00:40 Temperature 36.9 C Pulse Rate 77 80 Respiratory Rate 18 Blood Pressure 154/71 H Pulse Oximetry 97 Oxygen Delivery Exam Const: General: comfortable HENMT: Mouth: Yes moist mucous membranes Eyes: EOM: EOMs intact bilaterally Neck: Neck: no JVD Resp: Effort & Inspection: normal respiratory effort Auscultation: clear to auscultation bilaterally Cardio: Rate: regular rate Rhythm: regular rhythm GI: GI Palp: Yes Soft to palpation Neuro: Speech: normal speech Extrem: General: no edema and no pedal edema Psych: Affect: normal affect Results Labs and Meds 10/13/24 06:39 10/13/24 06:39 Lab results: Cardiac Enzymes 10/12/24 10/13/24 Range/Units 20:19 06:39 AST 26 21 (17-59) U/L Troponin I < 0.012 (0.000-0.034) ng/mL Coagulation 10/12/24 Range/Units 20:19 PT 14.0 (11.1-14.7) Seconds APTT 23.8 (22.3-36.8) Seconds Lipids 10/13/24 Range/Units 06:39 Triglycerides 216 H (<150) mg/dL Cholesterol 127 (0-200) mg/dL CBC 10/12/24 10/13/24 Range/Units 20:19 06:39 WBC 6.6 6.0 (4.5-10.0) K/mm3 RBC 5.02 4.43 L (4.6-6.20) M/mm3 Hgb 14.9 13.5 L (14.0-18.0) g/dL Hct 43.8 38.8 L (42.0-52.0) % Plt Count 250 211 (150-375) k/mm3 Lymph # (Auto) 2.32 2.31 (0.9-3.2) K/mm3 [place] # (Auto) 0.5 0.5 (0.1-0.6) K/mm3 Eos # (Auto) 0.1 0.1 (0-0.3) K/mm3 Baso # (Auto) 0.1 0.0 (0.0-0.1) K/mm3 Comprehensive Metabolic Panel 10/12/24 10/13/24 Range/Units 20:19 06:39 Sodium 134 L 134 L (137-145) mmol/L Potassium 4.0 3.9 (3.4-5.0) mmol/L Chloride 102 103 (98-107) mmol/L Carbon Dioxide 24 25 (22-30) mmol/L BUN 13 11 (9-20) mg/dL Creatinine 1.10 0.90 (0.7-1.3) mg/dL Glucose 230 H 180 H (65-110) mg/dL Calcium 9.6 9.0 (8.4-10.2) mg/dL AST 26 21 (17-59) U/L ALT 21 19 (6-50) U/L Alkaline Phosphatase 86 83 (38-126) U/L Total Protein 8.0 7.0 (6.3-8.2) g/dL Albumin 4.7 4.1 (3.5-5.1) g/dL Intake and Output 10/12/24 10/13/24 10/13/24 23:59 07:59 15:59 Intake Total 120 Balance 120 Intake: Oral 120 Other: # Unmeasured Voids 2 Patient Weight 10/13/24 23:59 Weight 112.1 kg
--- NOTE | 2024-10-13 16:15 | P.DS_ITS ---
DS: Admitting Diagnosis Discharge Date 10/13/2024 Admitting Diagnosis Syncope DS: Discharge Diagnosis Discharge Diagnosis (1) Syncope: Code(s): R55 - Syncope and collapse Status: Acute (2) Type 2 diabetes mellitus with hyperglycemia: Code(s): E11.65 - Type 2 diabetes mellitus with hyperglycemia Status: Acute (3) HTN (hypertension): Code(s): I10 - Essential (primary) hypertension Status: Acute DS: Summary Hospital Course Hospital Course: * Chest x-ray showed left basilar atelectasis versus pneumonia. Normal white blood cell count, patient is afebrile, and no cough. * CTA brain and carotid: IMPRESSION: 1. Normal aging brain. No aneurysm or significant intracranial arterial stenosis. 2. 0% stenosis of the proximal internal carotid arteries relative to normal distal artery lumen diameters (NASCET criteria). * Brain MRI showed normal aging brain. * ECHO showed: Summary 1. The atrial septum is not well visualized. There were limited views of agitated saline study in short loops however in does limited views and short loops there did not appear to be any right to left shunts. 2. The left ventricle is normal in size and systolic function. The left ventricular ejection fraction is visually estimated to be 60-65%. 3. The right ventricle is mildly dilated with preserved systolic function. * EKG showed SR with right BBB rate 88 with QTc 480. * Cardiology cleared patient for discharge with follow up on 11/25/24 at 9:[address] Thornton. Status at Discharge Functional status at discharge: independent ambulation Overall status at discharge: patient is progressing back to baseline Time Spent with Patient Time attestation: Total time spent providing and/or coordinating discharge services: Time spent: Greater than 30 minutes Exam Const: General: comfortable and no acute distress Eyes: Sclera: sclerae normal Resp: Effort & Inspection: normal respiratory effort Auscultation: clear to auscultation bilaterally Cardio: Rate: regular rate Rhythm: regular rhythm GI: GI Palp: Yes Soft to palpation Auscultation: normal bowel sounds Extrem: General: normal to inspection and no pedal edema Psych: Mental Status: mental status grossly normal Affect: normal affect DS: Data Data Completed and Pending Labs on day of discharge: Labs from last 24 hours 10/13/24 10/13/24 10/13/24 11:41 08:01 06:39 WBC 6.0 RBC 4.43 L Hgb 13.5 L Hct 38.8 L MCV 87.6 MCH 30.5 MCHC 34.8 RDW 13.2 Plt Count 211 MPV 9.8 Immature Gran % (Auto) 0.2 Neut % (Auto) 50.7 Lymph % (Auto) 38.2 [place] % (Auto) 8.6 H Eos % (Auto) 1.8 Baso % (Auto) 0.5 Lymph # (Auto) 2.31 [place] # (Auto) 0.5 Eos # (Auto) 0.1 Baso # (Auto) 0.0 Abs Immat Gran (auto) 0.01 Absolute Neuts (auto) 3.1 Absolute Nucleated RBC 0.000 Nucleated RBC % 0.0 PT INR APTT Sodium 134 L Potassium 3.9 Chloride 103 Carbon Dioxide 25 Anion Gap 6 BUN 11 Creatinine 0.90 Estim Creat Clear Calc 92 Estimated GFR > 60 Glucose 180 H POC Capillary Glucose 166 H 174 H Hemoglobin A1c Lactic Acid Calcium 9.0 Magnesium 1.6 Total Bilirubin 0.8 AST 21 ALT 19 Alkaline Phosphatase 83 Troponin I Total Protein 7.0 Albumin 4.1 Triglycerides 216 H Cholesterol 127 LDL Cholesterol Direct 56 HDL Direct 33 Urine Color Urine Appearance Urine pH Ur Specific [place] Urine Protein Urine Glucose (UA) Urine Ketones Ur Blood (Man) Urine Nitrate Urine Bilirubin Urine Urobilinogen Leukocyte Esterase Rfl 10/13/24 10/12/24 10/12/24 01:08 22:00 20:54 WBC RBC Hgb Hct MCV MCH MCHC RDW Plt Count MPV Immature Gran % (Auto) Neut % (Auto) Lymph % (Auto) [place] % (Auto) Eos % (Auto) Baso % (Auto) Lymph # (Auto) [place] # (Auto) Eos # (Auto) Baso # (Auto) Abs Immat Gran (auto) Absolute Neuts (auto) Absolute Nucleated RBC Nucleated RBC % PT INR APTT Sodium Potassium Chloride Carbon Dioxide Anion Gap BUN Creatinine Estim Creat Clear Calc Estimated GFR Glucose POC Capillary Glucose Hemoglobin A1c 7.5 H Lactic Acid 1.9 2.9 H Calcium Magnesium Total Bilirubin AST ALT Alkaline Phosphatase Troponin I Total Protein Albumin Triglycerides Cholesterol LDL Cholesterol Direct HDL Direct Urine Color Yellow Urine Appearance Clear Urine pH 5.5 Ur Specific [place] > 1.045 H Urine Protein Negative Urine Glucose (UA) 3+ H Urine Ketones Negative Ur Blood (Man) Negative Urine Nitrate Negative Urine Bilirubin Negative Urine Urobilinogen 0.2 Leukocyte Esterase Rfl Negative 10/12/24 20:19 WBC 6.6 RBC 5.02 Hgb 14.9 Hct 43.8 MCV 87.3 MCH 29.7 MCHC 34.0 RDW 13.2 Plt Count 250 MPV 9.7 Immature Gran % (Auto) 0.2 Neut % (Auto) 54.4 Lymph % (Auto) 35.3 [place] % (Auto) 7.4 Eos % (Auto) 1.8 Baso % (Auto) 0.9 Lymph # (Auto) 2.32 [place] # (Auto) 0.5 Eos # (Auto) 0.1 Baso # (Auto) 0.1 Abs Immat Gran (auto) 0.01 Absolute Neuts (auto) 3.6 Absolute Nucleated RBC 0.000 Nucleated RBC % 0.0 PT 14.0 INR 1.0 APTT 23.8 Sodium 134 L Potassium 4.0 Chloride 102 Carbon Dioxide 24 Anion Gap 8 BUN 13 Creatinine 1.10 Estim Creat Clear Calc 75 Estimated GFR > 60 Glucose 230 H POC Capillary Glucose Hemoglobin A1c Lactic Acid Calcium 9.6 Magnesium 1.6 Total Bilirubin 0.7 AST 26 ALT 21 Alkaline Phosphatase 86 Troponin I < 0.012 Total Protein 8.0 Albumin 4.7 Triglycerides Cholesterol LDL Cholesterol Direct HDL Direct Urine Color Urine Appearance Urine pH Ur Specific [place] Urine Protein Urine Glucose (UA) Urine Ketones Ur Blood (Man) Urine Nitrate Urine Bilirubin Urine Urobilinogen Leukocyte Esterase Rfl Discharge Plan Discharge Attending physician on discharge: Yousif Veronica Consulting providers: Yeison Thornton Discharging Clinician: Sultana Crowe Anticipated Discharge Date/Time: 10/13/24 17:00 Patient Disposition: Home, Self-Care Activity: may shower Diet: heart healthy Discharge Instructions: * If you develop any lightheadedness, pass out, or narrowing of vision notify provider. * Keep Cardiology appointment on 11/25/24 at 9:15 AM. Patient Instructions: Antibiotic Form, Syncope (DC) Stand Alone Forms: General Discharge Information Follow-up/Referrals: Jefry Cabrera [Other] - 1 Week Yeison Thornton MD [Physician] - 11/25/24 9:15 am Discharge Medications: Continued atorvastatin 10 mg tablet 10 mg PO HS clopidogrel 75 mg tablet 75 mg PO DAILY omeprazole 40 mg capsule,delayed release(DR/EC) 40 mg PO DAILY clobetasol 0.05 % ointment 0.05 applic TOPICAL BID pioglitazone 30 mg tablet 30 mg PO DAILY metformin 750 mg tablet extended release 24 hr 750 mg PO BID Ozempic 1 mg/dose (4 mg/3 mL) pen injector 1 mg SUBCUT WEEKLY metoprolol succinate 50 mg tablet extended release 24 hr 50 mg PO DAILY levothyroxine 75 mcg tablet 75 mcg PO DAILY losartan 100 mg tablet 100 mg PO DAILY magnesium oxide 400 mg magnesium Capsule 400 mg PO DAILY Date of admission: 10/12/24 22:54 Primary Care Provider: UNKNOWN,DOCTOR Admitting Provider: Ulises Rankin Attending physician on admission: Ulises Rankin Condition: Stable Hospitalist MIPS Heart Failure (Exclusion) Patient has history of Heart Transplant or Left Ventricular Assistive Device?: No IF YES, STOP HERE Heart Failure (Qualifier) Patient has current or prior documentation of LVEF less than or equal to 40%, or mod/servere depressed LVSF?: No IF NO, STOP HERE
[2024-10-13 17:07] LABS: Glucose Point of Care 174 mg/dl (65-105)
== END 2024-10-13 17:10 | disposition home or self-care (01) ==
LOC: ANHED 22:57 → ANH3MED 10-13 16:17
PROVIDERS: Nurse Practitioner; Admitting Provider Internal Medicine; Emergency Provider Emergency Medicine; Visit Provider General Practice
DX: R55 Syncope and collapse (principal); E11.65 Type 2 diabetes mellitus with hyperglycemia; I10 Essential (primary) hypertension; I25.10 Atherosclerotic heart disease of native coronary artery without angina pectoris; E03.9 Hypothyroidism, unspecified; E78.5 Hyperlipidemia, unspecified; Z79.02 Long term (current) use of antithrombotics/antiplatelets; Z79.84 Long term (current) use of oral hypoglycemic drugs
CPT/HCPCS: 36415; 70496; 70498; 70553; 71045; 80053; 80061; 81003; 82948; 83036; 83605; 83735; 84484; 85025; 85610; 85730; 93005; 93306; 96372; 96375; 97161; 99285; A9270; A9577; G0378; J1650; J7030; Q9967

== ENCOUNTER 2024-12-21 00:36 | Day surgery (SDC) | payer MEDICARE, SELFPAY ==
[2024-12-20 10:45] VITALS: BMI 32.8
--- OUTSIDE RECORDS SUMMARY | 2024-12-21 00:41 | XMS_ITS | Clinical Summary ---
Author Organization [facility] Address [address] [place] [id number] Care Team Providers Care Junior Technical Writer Name Role Phone Jefry Cabrera MD Primary Care Provider [phone] Social History Tobacco Use Types Packs/Day Years Used Date Smoking Tobacco: Never Sex and Gender Information Value Date Recorded Sex Assigned at Not on file Legal Sex Male 9:15 PM CDT Gender Identity Not on file Sexual Orientation Not on file Last Filed Vital Signs Vital Sign Reading Time Taken Comments Blood Pressure 130/80 04/17/2006 8:45 AM CDT bot h arms Pulse 65 04/17/2006 8:45 AM CDT regul ar Temperature - - Respiratory Rate 18 04/17/2006 8:45 AM CDT r egular Oxygen Saturation - - Inhaled Oxygen Concentration - - Weight 108.9 kg (240 lb) 04/17/2006 8:45 AM CDT Height 185.4 cm (6' 1 ) 04/17/2006 8:45 AM CDT Body Mass Index 31.66 04/17/2006 8:45 AM CDT Plan of Treatment Health Maintenance Due Date Last Done Comments Colorectal Cancer Screening Colonoscopy (10 Years) 1958 Hepatitis C 1976 DTaP, Tdap and Td Vaccines ( 1 - Tdap) 1977 Zoster Vaccines (1 of 2) 2008 Annual Medicare Wellness Visit 2023 Pneumococcal Vaccine: 65+ Ye ars (1 of 1 - PCV) 2023 COVID-19 Vaccine ( - 2023-2 5 season) 2024 Influenza Adult (#1) 2024 RSV Immunization or 60+ Years (1 - 1-dose 75+ series) 2033 Meningococcal B Vaccine Aged Out No l onger eligible based on patient's age to complete this topic Meningococcal Vaccine Aged Out No alexander adin eligible based on patient's age to complete this topic RSV Immunizations Under 20 Months Aged Out No longer eligible based on patient's age to complete this topic Insurance MEDICARE [facility] Care Teams Junior Technical Writer Relationship Specialty Start Date End Date Jefry Cabrera MD [address] [place] [id number] PCP - General INTERNAL MEDICINE 01/29/24
[2024-12-21 07:36] VITALS: BP 138/88; PULSE 90; RESP 20; TEMP 36.6; O2SAT 96
--- NOTE | 2024-12-21 09:03 | WPDCARDPROC ---
Cardiac Cath Procedure Note Date of procedure:: 12/21/24 Performing physician:: Jefry Ware MD Indication:: Syncope Brief clinical history:: This is a 64-year-old man with a 2-3 year history of intermittent syncope. To rule out cardiac arrhythmic cause of this loop recorder implant has been recommended and scheduled for today Procedure Procedure performed:: Implantation of Biotronik bio monitor loop implant Sedation/Medication given:: No sedation Access site:: Left anterior chest wall Estimated blood loss:: Minimal Procedure note:: Patient was brought to the cardiac catheterization lab holding area in the postabsorptive state the left anterior chest wall was inspected and a jorge was made in the 4th intercostal space in the midclavicular line. The area was then prepped and draped in a sterile fashion. 1% lidocaine was used to provide local anesthesia. The bio monitor device was opened and the puncture tool was used to make a stab wound at the jorge. The insertion tool was then advanced I inferior to the puncture and the loop recorder was then implanted in the tract that was created. The procedure was well tolerated and uncomplicated. The patient received a Biotronik Biomonitor 4 loop recorder model [id number]. Serial number [id number]. Findings:: As above Conclusion:: Successful uncomplicated implantation of Biotronik bio monitor 4 loop recorder for evaluation recurrent syncope in this 64-year-old gentleman Jefry Ware MD [facility]
== END 2024-12-21 09:55 | disposition home or self-care (01) ==
PROVIDERS: Visit Provider Specialist
PROC: (CPT 33285; principal; 2024-12-21 08:30)
DX: R55 Syncope and collapse (principal)
CPT/HCPCS: 33285; C1764; J2003